=== PATIENT | male | born 1970 | race African-American/Black ===

== ENCOUNTER 2017-01-18 20:16 | Inpatient (IN) ==
[2017-01-18] MEDS ORDERED: ONDANSETRON 4 MG/2 ML VIAL IV STA (21:33)
[2017-01-18] MEDS ORDERED: hydrALAZINE 20 MG/1 ML VIAL IV STA (21:33)
[2017-01-18] MEDS ORDERED: MORPHINE 2 MG/1 ML SYRINGE IV STA (21:33)
[2017-01-18] MEDS ORDERED: ASPIRIN 325 MG TABLET PO STA (21:33)
[2017-01-18] MEDS ORDERED: FUROSEMIDE 100 MG/10 ML VIAL IV STA (21:33)
[2017-01-18] MEDS ORDERED: NITROGLYCERIN 2% OINT 1 INCH/GM PACK TOP STA (21:33)
[2017-01-18] MEDS ORDERED: NITROGLYCERIN 2% OINT 1 INCH/GM PACK TOP ONE (21:41)
[2017-01-18] MEDS ORDERED: ONDANSETRON 4 MG/2 ML VIAL ONE (21:41)
[2017-01-18] MEDS ORDERED: hydrALAZINE 20 MG/1 ML VIAL ONE (21:41)
[2017-01-18] MEDS ORDERED: ASPIRIN 325 MG TABLET ONE (21:42)
[2017-01-18] MEDS ORDERED: MORPHINE 2 MG/1 ML SYRINGE ONE (21:42)
[2017-01-18] MEDS ORDERED: FUROSEMIDE 100 MG/10 ML VIAL ONE (21:42)
--- NOTE | 2017-01-18 21:49 | Emergency Department Note ---
Angie Hernandez Rolonda, am scribing for, and in the presence of, Richard Antunez MD 21:38. Tulio Hernandez Charles R, MD, personally performed the services described in this documentation, ascribed by Lindsay Adams in my presence, and it is both accurate and complete . Arrival - Arrival Chief Complaint: Extremity Problem Stated Complaint: problems with legs/sob/swelling ED Nursing Triage Note: AMB TO ER WITH COMPLAINT OF SWELLING TO BLE. PATIENT STATES THAT SYMPTOMS HAVE BEEN GOING ON FOR SOME TIME NOW- "WEEKS" BUT ARE GETTING WORSE. BP ELEVATED IN TRIAGE. HX OF HTN- PATIENT STATES TAKES BP MEDS AND HAD MORNING DOSE BUT NOT PM DOSE. Mode of Arrival: Ambulatory Limitations: No Limitations Source: Patient, Significant other, Old Records Reviewed, RN Notes Reviewed Time Seen by Provider: 01/18/17 21:01 - History of Present Illness HPI Narrative: Pt is a 46 y/o male who presents to the ED with c/o SOB with an onset of weeks. Pt has a PMHx of HTN and DM. He states that he recently had a stress test done and the results were normal. Pt states that he had lab work done about x1 month ago on his legs and feet and that the results were normal as well. Pt confirms that he has weakness, wheezing, and swelling in his legs and feet. states that she does not recall when pt's great left toe became infected but it worsened over time. She states that pt's toe "looks better than it did before". Pt confirms that he is currently taking BP medication and that he took the morning dosage but has not taken the one for nights. At time of triage, pt's BP was 251/133. No other complaint/pain in ED. Onset (ago): week(s) Consistency: constant Severity: moderate, severe Severity scale (1-10): 6 Allergies/Adverse Reactions: Allergies Allergy/AdvReac Type Severity Reaction Status Date / Time No Known Allergies Allergy Unverified 01/18/17 20:28 Home Medications: Home Medications Medication Instructions Recorded Confirmed Type Carvedilol [Coreg] 12.5 mg PO BID 01/18/17 01/18/17 History Ergocalciferol (Vitamin D2) 50,000 unit PO DIRECTED 01/18/17 01/18/17 History [Vitamin D2] Valsartan/Hydrochlorothiazide 1 each PO DAILY 01/18/17 01/18/17 History [Valsartan-Hctz 320-25 mg Tab] cloNIDine TAB [Catapres Tab] 0.2 mg PO BID 01/18/17 01/18/17 History glipiZIDE [Glipizide] 10 mg PO BID 01/18/17 01/18/17 History metFORMIN [Glucophage] 850 mg PO BID W/MEALS 01/18/17 01/18/17 History Review of System - Review of System 12 point system: reviewed and no additional remarkable complaints except as stated - Review of System Constitutional: Present: weakness. Absent: chills, fever Eyes: Absent: discharge Head/Ears/Nose/Throat: Absent: earache Respiratory: Present: respiratory distress (SOB), wheezing. Absent: cough Cardiovascular: Absent: chest pain Gastrointestinal: Absent: abdominal pain, nausea Genitourinary male: Absent: dysuria Musculoskeletal: Present: joint swelling, other (feet pain). Absent: arm pain, back pain Skin: Absent: rash Neurological: Absent: headache Psychiatric: Absent: anxiety Endocrine: Absent: cold intolerance Hematological/Lymphatic: Absent: easy bleeding Allergic/Immunologic: Absent: facial swelling Medical,Surgical,& Family Hx - Medical History Cardio: History of: Hypertension Endocrine: History of: Diabetes Mellitus (NIDDM) - Social History Smoking Status: Never smoker Frequency of Alcohol Use: None Type of Drug Use: None Exam Vital Signs: Vital Signs Temperature 97.9 F 01/18/17 20:21 Pulse Rate 101 H 01/18/17 20:21 Respiratory Rate 22 01/18/17 21:13 Blood Pressure 251/133 01/18/17 20:21 O2 Sat by Pulse Oximetry 97 01/18/17 20:21 - General General appearance: alert, in no apparent distress - Head Head exam: Present: atraumatic, normocephalic - Eye Eye exam: Present: PERRL, EOMI - ENT ENT exam: Present: mucous membranes moist. Absent: mucous membranes dry - Neck Neck exam: Present: full ROM. Absent: tenderness - Chest Chest inspection: Present: symmetric chest wall rise. Absent: tenderness - Respiratory Respiratory exam: Present: rales (bilaterally). Absent: normal lung sounds bilaterally (slightly labor breathing) - Cardiovascular Cardiovascular exam: Present: normal rhythm, tachycardia - Abdominal Exam Abdominal exam: Present: soft, normal bowel sounds. Absent: tenderness - Extremities Exam Extremities exam: Present: pedal edema (+2). Absent: normal inspection (left great toe ganglious, infected, and cool to touch), tenderness - Back Exam Back exam: Present: full ROM. Absent: tenderness - Neurological Exam Neurological exam: Present: alert, oriented X3, CN II-XII intact - Psychiatric Psychiatric exam: Present: normal affect, normal mood - Skin Skin exam: Present: warm, dry, intact, normal color. Absent: rash Course - Consultations Consultation #1: Hospitalist will admit Time: 22:48 Results - Labs CBC & BMP: 01/18/17 21:36 01/18/17 21:36 Lab Results: I have reviewed the patients labs Labs: Laboratory Tests 01/18/17 01/18/17 21:36 21:36 WBC 9.2 RBC 4.59 Hgb 14.1 Hct 38.9 L MCV 84.7 L MCHC 36.2 H Plt Count 196 MPV 12.9 H INR 1.0 PT Patient/Control Mix 10.8 D-Dimer, Quantitative 1.6 Laboratory Tests 01/18/17 21:36 Sodium 141 Potassium 4.0 Chloride 110 H Carbon Dioxide 24 BUN 19 H Creatinine 1.90 H GFR Calculation 68 Glucose 229 H AST 34 Total Creatine Kinase 672 H CK-MB (CK-2) 4.4 H Albumin 2.0 L Globulin 5.1 H Albumin/Globulin Ratio 0.3 L Critical Care Time Critical Care Time: Yes Total Critical Care Time: 60 Disposition Clinical Impression: Cellulitis, Ulcer of left great toe due to diabetes mellitus, Lower extremity edema, Hypertensive crisis, unspecified Case discussed with: patient, patient's family Disposition: Still a Patient Condition: Guarded Time of Disposition: 22:49
[2017-01-18 21:51] LABS: Basophils % 0.4 % (0.0-0.8); Eosinophils # 0.2 10*3/uL (0.0-0.87); Eosinophils % 1.6 % (0.00-10.9); Hematocrit 38.9 VOL% (42.0-52.0); Hemoglobin 14.1 GM/DL (14.0-18.0); Immature Granulocytes % 0.4 %; Immature Granulocytes Absolute 0.04 #; Lymphocytes % 21.8 % (21.2-54.2); Mean Corpuscular HGB Conc 36.2 GM/DL (32-36); Mean Corpuscular Hemoglobin 31 PG (27-34); Mean Corpuscular Volume 84.7 FL (87-102); Mean Platelet Volume 12.9 FL (9.6-12.0); Monocytes # 0.8 10*3/uL (0.11-0.8); Monocytes % 9.2 % (1.7-12.7); Neutrophils # 6.1 10*3/uL (1.4-7.4); Neutrophils % 66.6 % (38.7-73.9); Platelet Count 196 T/CUMM (130-400); Red Blood Count 4.59 MC/CUMM (3.8-5.5); White Blood Count 9.2 T/CUMM (4-12)
[2017-01-18 21:58] LABS: D-Dimer 1.6 MG/L FEU; PT Patient Result 10.8 SECS
[2017-01-18 22:03] LABS: Alanine Aminotransferase 29 U/L (16-61); Alkaline Phosphatase 107 U/L (45-117); Aspartate Amino Transferase 34 U/L (0-37); Blood Urea Nitrogen 19 MG/DL (7-18); Calcium 8.5 MG/DL (8.5-10.1); Glucose 229 MG/DL (74-106); Osmolality,Calculated 289.3 MOS/KG (273-304); Sodium 141 MMOL/L (136-145); Total Protein 7.1 G/DL (6.4-8.3)
[2017-01-18] MEDS ORDERED: niCARdipine 25 MG/10 ML VIAL IV ONE (22:43)
[2017-01-18] MEDS ORDERED: CEFTAROLINE 600 MG in SODIUM CHLORIDE 0.9% 100 ML IV STA (22:45)
[2017-01-18] MEDS ORDERED: niCARdipine INJ 25 MG in SODIUM CHLORIDE 0.9% 240 ML IV SCH (23:00)
[2017-01-18] MEDS ORDERED: SODIUM CHLORIDE 0.9% 100 ML IV ONE (23:07)
[2017-01-18] MEDS ORDERED: CEFTAROLINE 600 MG VIAL IV ONE (23:07)
[2017-01-18 23:26] LABS: Apearance,Urine CLEAR (Clear); Bilirubin,Urine Negative (Negative); Blood, Urine Small mg/dL (Negative); Glucose,Urine (UA) 150 mg/dL (Negative); Ketones,Urine Negative (Negative); Mucus,Urine Occasional /LPF (Occasional); Nitrite,Urine Negative (Negative); Protein,Urine >=500 MG/DL; RBC,Urine 7 /HPF (0-4); Urine Color Straw (Yellow); Urine Specific Gravity 1.008 (1.001-1.035); Urine Urobilinogen < 2.0 EU/DL (0.2-1.0); WBC,Urine 1 /HPF (0-6)
[2017-01-18 23:35] LABS: Barbiturates Screen,Urine Negative (Negative); Benzodiazepines Screen,Urine Negative (Negative); Cannabinoid Screen,Urine Negative (Negative); Opiate Screen,Urine Negative (Negative); Phencyclidine Screen,Urine Negative (Negative)
[2017-01-18] MEDS ORDERED: DEXTROSE 50% 25 GM/50 ML SYRINGE IV PRN (23:39)
[2017-01-18] MEDS ORDERED: ONDANSETRON 4 MG/2 ML VIAL IV PRN (23:39)
[2017-01-18] MEDS ORDERED: GLUCAGON 1 MG VIAL IM PRN ×2 (23:39→23:46)
[2017-01-18] MEDS ORDERED: MORPHINE 2 MG/1 ML SYRINGE IV PRN (23:39)
[2017-01-18] MEDS ORDERED: ALBUTEROL 2.5 MG/3 ML NEB RESP TX PRN (23:39)
[2017-01-18] MEDS ORDERED: DEXTROSE 50% 25 GM/50 ML VIAL IV PRN (23:46)
--- NOTE | 2017-01-18 23:51 | Hospitalist History & Physical ---
Assessment and Plan (1) Cellulitis Status: Acute Current Visit: Yes (2) Ulcer of left great toe due to diabetes mellitus Status: Acute Current Visit: Yes (3) Lower extremity edema Status: Acute Current Visit: Yes (4) Hypertensive crisis, unspecified Status: Acute Assessment and plan: Our plan for this patient 1. Admit patient to ICU 2. A Cardene infusion 3. IV antibiotics for toe wound 4. Wound care evaluation 5. Consider a surgical evaluation 6. Restart home meds 7. We will try to diurese some of his lower extremity edema off 8. Obtain records from [facility] cardiology Current Visit: Yes History of Present Illness Chief complaint: Lower extremity edema. History of present illness: Mr. Shane is a 46 year old male with past medical history significant for diabetes and hypertension has been dealing with lower extremity edema for several months. He had a recent cardiac workup which I do not have the records to but according to him it was negative. The leg seem to be dependent edema per the story. 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 But he does admit that they will go down when he lays down. Patient is also having a chronic toe wound is been going on approximately 3 weeks. Patient was having elevated blood pressure and I was consulted to admit him for his hypertensive emergency. It was not responding to the as needed hydralazine use to the emergency room and required a Cardene infusion and ICU admission. Home Medications Medication Instructions Recorded Confirmed Type Carvedilol [Coreg] 12.5 mg PO BID 01/18/17 01/18/17 History Ergocalciferol (Vitamin D2) 50,000 unit PO DIRECTED 01/18/17 01/18/17 History [Vitamin D2] Valsartan/Hydrochlorothiazide 1 each PO DAILY 01/18/17 01/18/17 History [Valsartan-Hctz 320-25 mg Tab] cloNIDine TAB [Catapres Tab] 0.2 mg PO BID 01/18/17 01/18/17 History glipiZIDE [Glipizide] 10 mg PO BID 01/18/17 01/18/17 History metFORMIN [Glucophage] 850 mg PO BID W/MEALS 01/18/17 01/18/17 History Allergies Allergy/AdvReac Type Severity Reaction Status Date / Time No Known Allergies Allergy Unverified 01/18/17 20:28 Medical,Surgical,& Family Hx - Medical History Cardio: History of: Hypertension Endocrine: History of: Diabetes Mellitus (NIDDM) - Surgical History Additional Surgical History: Abscess I&D - Family History Family History: Reports;: Family Diabetes, Family Heart Disease - Social History Smoking Status: Never smoker Frequency of Alcohol Use: None Type of Drug Use: None 12 point system: reviewed and no additional remarkable complaints except as stated Exam - Constitutional Vitals: Period Temp Pulse Resp BP Sys/Grimes Pulse Ox Last 24 Hr 97.9 F-97.9 F 101-101 20-22 251-251/133-133 97 General appearance: normal weight - Head Head exam: Present: normal inspection - Eye Eye exam: Present: EOMI Pupils: Present: SANJUANA - ENT ENT exam: Present: normal exam - Neck Neck exam: Present: normal inspection - Respiratory Respiratory exam: Present: clear to auscultation bilaterally - Cardiovascular Cardiovascular exam: Present: regular rate and rhythm - GI/Abdominal GI/Abdominal exam: Present: normal bowel sounds - Extremities Exam Extremities exam: Present: edema (+2), other (Patient's left great toe is cool to touch is discoloration consistent with infection) - Back Exam Back exam: Present: normal inspection - Neurological Exam Neurological exam: Present: alert, oriented X3 - Psychiatric Psychiatric exam: Present: normal affect, normal mood - Skin Skin exam: Present: warm, dry, intact Results - Labs CBC & BMP: 01/18/17 21:36 01/18/17 21:36
[2017-01-19] MEDS: niCARdipine INJ 50 MG in SODIUM CHLORIDE 0.9% 480 ML IV SCH ×3 (00:30→20:15)
--- NOTE | 2017-01-19 06:04 | EKG Report ---
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
[2017-01-19] MEDS: ENOXAPARIN 30 MG/0.3 ML SYRINGE SUBCUT SCH (06:07)
--- NOTE | 2017-01-19 06:59 | XRay Report ---
XR chest 1V portable Indication: Shortness of breath. Chest one view: Comparison 10/17/2007. Lung volumes remain low with chronic elevation right hemidiaphragm. Progressive atelectasis or scarring of the right lung base noted. There are some degree of central pulmonary vascular crowding. No discrete infiltrate. Pulmonary markings are eccentric by obesity. Heart size remains normal. Mediastinal contours unremarkable. Impression: Chronic elevation right hemidiaphragm and continued pulmonary hypoinflation with progressive atelectasis and/or scarring as described. PROCEDURE INTERPRETED AT [facility] Final Report Signed by: Ford Sarkar M.D.
[2017-01-19 07:16] LABS: Basophils % 0.4 % (0.0-0.8); Eosinophils # 0.1 10*3/uL (0.0-0.87); Eosinophils % 1.2 % (0.00-10.9); Hematocrit 36.4 VOL% (42.0-52.0); Hemoglobin 12.9 GM/DL (14.0-18.0); Immature Granulocytes % 0.4 %; Immature Granulocytes Absolute 0.04 #; Lymphocytes # 1.9 10*3/uL (1.4-4.0); Mean Corpuscular HGB Conc 35.4 GM/DL (32-36); Mean Corpuscular Hemoglobin 31 PG (27-34); Mean Corpuscular Volume 86.3 FL (87-102); Monocytes # 0.8 10*3/uL (0.11-0.8); Monocytes % 8.5 % (1.7-12.7); Neutrophils % 70.5 % (38.7-73.9); Platelet Count 198 T/CUMM (130-400); Red Blood Count 4.22 MC/CUMM (3.8-5.5); Red Cell Distribution Width 13.1 % (9.3-17.3); White Blood Count 9.9 T/CUMM (4-12)
[2017-01-19] MEDS ORDERED: hydrALAZINE 20 MG/1 ML VIAL IV PRN (07:26)
[2017-01-19] MEDS: INSULIN REGULAR 100 UNIT/ML SUBCUT SCH ×4 (07:55→20:32)
[2017-01-19] MEDS: FUROSEMIDE 40 MG/4 ML VIAL IV SCH ×2 (07:55→16:30)
[2017-01-19 07:58] LABS: Albumin 2.1 G/DL (3.4-5.0); Bilirubin,Total 0.7 MG/DL (0.2-1.0); Calcium 8.4 MG/DL (8.5-10.1); Osmolality,Calculated 294.3 MOS/KG (273-304); Potassium 3.8 MMOL/L (3.5-5.1); Total Protein 5.8 G/DL (6.4-8.3)
[2017-01-19] MEDS: hydroCHLOROthiazide 25 MG TABLET PO SCH (08:05)
[2017-01-19] MEDS: VALSARTAN 160 MG TABLET PO SCH (08:05)
[2017-01-19] MEDS: PANTOPRAZOLE 40 MG TABLET PO SCH (08:05)
[2017-01-19] MEDS ORDERED: CARVEDILOL 12.5 MG TABLET PO SCH (09:00)
[2017-01-19] MEDS: CEFTAROLINE 600 MG in SODIUM CHLORIDE 0.9% 100 ML IV SCH (11:56)
--- NOTE | 2017-01-19 16:02 | Hospitalist Progress Note ---
Assessment and Plan (1) Hypertensive crisis, unspecified Status: Acute Assessment and plan: Continue home medications. Add as needed IV hydralazine. Continue Cardene drip and wean as tolerated. Current Visit: Yes (2) Cellulitis Status: Acute Assessment and plan: Continue Teflaro. Surgery consult for debridement. Current Visit: Yes Qualifiers: Site of cellulitis: extremity Laterality: left (3) Ulcer of left great toe due to diabetes mellitus Status: Acute Current Visit: Yes (4) Lower extremity edema Status: Acute Current Visit: Yes Hospitalist: Subjective Interval history: Patient seen and examined. No acute events overnight. Case discussed with nursing staff. Labs reviewed. Wound care consult pending as well as general surgery consult for evaluation and debridement of left great toe. The patient remains on Cardene drip for uncontrolled hypertension. Exam - Constitutional Vitals: Period Temp Pulse Resp BP Sys/Grimes Pulse Ox Last 24 Hr 97.2 F-99.2 F 84-105 7-38 118-251/55-133 92-100 Exam: Constitutional System: No distress. morbidly obese . No tremulousness. Head: Normocephalic, atraumatic. Ears, Nose and Throat System: No pain or tenderness. No epistaxis or discharge Eyes System: Pupils equal, round, and reactive. Extraocular muscles intact. Neck: Supple, without adenopathy, No jugular venous distention. No thyromegaly, neck mass, or prior surgery apparent. Respiratory System: Chest clear to auscultation. Cardiovascular System: Heart with regular rate and rhythm. No murmur. GI System: Abdomen soft, nontender. Normo active bowel sounds present. Musculoskeletal System: limbs with bilateral pedal edema. Full distal pulses. Poor sensation in feet. Left great toe with foul-smelling discharge and nonviable appearing male with areas of necrosis. Neurological System: Alert awake and oriented 3. No acute distress. Pleasant and cooperative. Psychiatric System: Conversation is rational Results - Labs CBC & BMP: 01/19/17 07:11 01/19/17 07:11 Lab Results: I have reviewed the past 24 hour labs
--- NOTE | 2017-01-19 17:05 | General Surgery Consult Note ---
Assessment and Plan - Time spent with patient Time spent with patient: Less than 30 minutes (1) Ulcer of left great toe due to diabetes mellitus Status: Acute Assessment and plan: I think this is mainly due to a severely ingrown toenail with secondary infection. The toenail does not appear viable and probably need to be removed. He will need debridement adjacent to this. We will set this up to be done in the morning. Procedure and risk of been explained and he wishes to proceed. Current Visit: Yes History of Present Illness Chief complaint: Infected toe History of present illness: Mr. Shane is a 46 year old male Who was admitted to the CCU for bilateral lower extremity edema and severe hypertension.. He states that he has about a 3 week history of drainage and foul odor from his left great toe. He has noted increasing deformity of his toenail. He does not know of any aggravating or alleviating factors. He is unaware of trauma to his toe. He has very poor sensation in his feet. Home Medications Medication Instructions Recorded Confirmed Type Carvedilol [Coreg] 12.5 mg PO BID 01/18/17 01/18/17 History Ergocalciferol (Vitamin D2) 50,000 unit PO DIRECTED 01/18/17 01/18/17 History [Vitamin D2] Valsartan/Hydrochlorothiazide 1 each PO DAILY 01/18/17 01/18/17 History [Valsartan-Hctz 320-25 mg Tab] cloNIDine TAB [Catapres Tab] 0.2 mg PO BID 01/18/17 01/18/17 History glipiZIDE [Glipizide] 10 mg PO BID 01/18/17 01/18/17 History metFORMIN [Glucophage] 850 mg PO BID W/MEALS 01/18/17 01/18/17 History Cholecalciferol (Vitamin D3) 2,000 unit PO DAILY 01/19/17 01/19/17 History [Vitamin D3] Ergocalciferol (Vitamin D2) 50,000 unit PO DAILY 01/19/17 01/19/17 History [Vitamin D2] Allergies Allergy/AdvReac Type Severity Reaction Status Date / Time No Known Allergies Allergy Unverified 01/18/17 20:28 Medical,Surgical,& Family Hx - Medical History Cardio: History of: Hypertension HEENT: History of: 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 glasses) Endocrine: History of: Diabetes Mellitus (NIDDM) Respiratory: History of: Pneumonia (year and a half ago) - Surgical History Surgical History: noncontributory - Family History Family History: Reports;: Family Diabetes, Family Heart Disease - Social History Smoking Status: Never smoker Frequency of Alcohol Use: None Type of Drug Use: None - Constitutional Constitutional: Absent: chills, fever(s) - Cardiovascular Cardiovascular: Absent: chest pain at rest, dyspnea - Respiratory Respiratory: Absent: dyspnea - Gastrointestinal Gastrointestinal: Absent: abdominal pain - Neurological Neurological: Absent: syncope Hematologic/Lymphatic: Absent: easy bleeding, easy bruising Exam - Constitutional Vitals: Period Temp Pulse Resp BP Sys/Grimes Pulse Ox Last 24 Hr 97.2 F-99.2 F 84-105 7-38 114-251/55-133 92-100 General appearance: no acute distress, morbidly obese - Eye Eye exam: Absent: scleral icterus - ENT Mouth exam: Present: normal voice - Respiratory Respiratory exam: Absent: accessory muscle use - GI/Abdominal GI/Abdominal exam: Absent: distended, tenderness - Extremities Exam Extremities exam: Present: edema, other (Left great toe has severe deformity of the nail with some purulent drainage from beneath the nail. It appears to be severely ingrown laterally. He does not have significant edema or cellulitis of the toe itself other than at the nail bed.) - Neurological Exam Neurological exam: Present: alert, oriented X3 Speech: Present: normal Results - Labs CBC & BMP: 01/19/17 07:11 01/19/17 07:11 Lab Results: I have reviewed the past 24 hour labs
[2017-01-19] MEDS: CARVEDILOL 25 MG TABLET PO SCH (20:32)
[2017-01-20] MEDS: CEFTAROLINE 600 MG in SODIUM CHLORIDE 0.9% 100 ML IV SCH ×3 (00:02→23:44)
[2017-01-20] MEDS: ENOXAPARIN 30 MG/0.3 ML SYRINGE SUBCUT SCH (06:18)
[2017-01-20 07:26] LABS: Calcium 8.1 MG/DL (8.5-10.1); Osmolality,Calculated 289.3 MOS/KG (273-304); Potassium 3.8 MMOL/L (3.5-5.1)
[2017-01-20] MEDS: FUROSEMIDE 40 MG/4 ML VIAL IV SCH ×2 (08:26→16:46)
[2017-01-20] MEDS: CARVEDILOL 25 MG TABLET PO SCH ×2 (08:28→20:57)
[2017-01-20] MEDS: hydroCHLOROthiazide 25 MG TABLET PO SCH (08:28)
[2017-01-20] MEDS: VALSARTAN 160 MG TABLET PO SCH (08:28)
[2017-01-20] MEDS: PANTOPRAZOLE 40 MG TABLET PO SCH (08:28)
[2017-01-20] MEDS: INSULIN REGULAR 100 UNIT/ML SUBCUT SCH ×4 (09:00→20:56)
[2017-01-20] MEDS ORDERED: BUPIVACAINE 0.25% 50 ML VIAL ONE (10:02)
[2017-01-20] MEDS: niCARdipine INJ 50 MG in SODIUM CHLORIDE 0.9% 480 ML IV SCH (10:14)
[2017-01-20] MEDS: LACTATED RINGERS 1,000 ML IV SCH (10:45)
--- NOTE | 2017-01-20 11:18 | Anesthesia Post-Op ---
Anesthesia Post OP - Post Ansesthetic Evaluation Patient seen in post op: Yes Resp: within normal limits CV: within normal limits Mental: within normal limits Temp: within normal limits [id number]: within normal limits Nausea and Vomiting: within normal limits Pain: within normal limits
--- NOTE | 2017-01-20 11:23 | Operative Note ---
Date of procedure: 01/20/17 Pre-op diagnosis: ingrown toe nail and necrosis lateral great toe Post-op diagnosis: same Procedure: 1. excisional debridement skin and subcutaneous tissue left great toe 2. removal toe nail Findings and technique: After informed consent was obtained, the patient was brought to the operating room and placed in the supine position. The left foot was prepped and draped in the usual sterile fashion. Local anesthesia without epinephrine was injected proximal to the nailbed and the toe was inspected and he had a severely ingrown nail laterally and the proximal toenail was completely dissociated from the nailbed. The toenail was easily removed without difficulty. There was some necrotic skin edge and subcutaneous tissue lateral to the cuticle and this was sharply debrided with a #15 blade removing old granulation tissue and debris. I wanted to make sure there was no foreign body in this area. This granulation tissue and necrotic subcutaneous tissue and skin edge lateral to the nail was debrided away. Good hemostasis was obtained. This was irrigated and sterilely dressed. Anesthesia: MAC, local Surgeon / Physician: Jose Iglesias III. Estimated blood loss: minimal Condition: stable Disposition: PACU Results - Labs CBC & BMP: 01/19/17 07:11 01/20/17 05:55 Discharge Plan - Discharge Medications No Action metFORMIN [Glucophage] 850 mg PO BID W/MEALS cloNIDine TAB [Catapres Tab] 0.2 mg PO BID glipiZIDE [Glipizide] 10 mg PO BID Valsartan/Hydrochlorothiazide [Valsartan-Hctz 320-25 mg Tab] 1 each PO DAILY Ergocalciferol (Vitamin D2) [Vitamin D2] 50,000 unit PO DIRECTED Carvedilol [Coreg] 12.5 mg PO BID Cholecalciferol (Vitamin D3) [Vitamin D3] 2,000 unit PO DAILY Ergocalciferol (Vitamin D2) [Vitamin D2] 50,000 unit PO DAILY - Follow Up or Referral - Forms/Instructions
[2017-01-20] MEDS ORDERED: PROPOFOL 200 MG/20 ML VIAL IV ONE (11:27)
[2017-01-20] MEDS ORDERED: MIDAZOLAM 2 MG/2 ML VIAL ONE (11:28)
[2017-01-20] MEDS ORDERED: fentaNYL 100 MCG/2 ML VIAL ONE (11:28)
[2017-01-20] MEDS ORDERED: hydrALAZINE 25 MG TABLET PO SCH (15:00)
--- NOTE | 2017-01-20 19:13 | Hospitalist Progress Note ---
Hospitalist: Subjective Interval history: 46-year-old -[place] male with history of hypertension and diabetes, in and has agreed with hypertensive urgency on IV Cardene infusion. He also has left diabetic foot with left great toe ulcer. He is otherwise comfortable. Exam - Constitutional Vitals: Period Temp Pulse Resp BP Sys/Grimes Pulse Ox Last 24 Hr 97.4 F-99 F 73-99 12-28 110-191/62-108 5-100 Exam: Constitutional System: No distress. morbidly obese . No tremulousness. Head: Normocephalic, atraumatic. Ears, Nose and Throat System: No pain or tenderness. No epistaxis or discharge Eyes System: Pupils equal, round, and reactive. Extraocular muscles intact. Neck: Supple, without adenopathy, No jugular venous distention. No thyromegaly, neck mass, or prior surgery apparent. Respiratory System: Chest clear to auscultation. Cardiovascular System: Heart with regular rate and rhythm. No murmur. GI System: Abdomen soft, nontender. Normo active bowel sounds present. Musculoskeletal System: limbs with bilateral pedal edema. Full distal pulses. Poor sensation in feet. Left great toe with foul-smelling discharge and nonviable appearing male with areas of necrosis. Neurological System: Alert awake and oriented 3. No acute distress. Pleasant and cooperative. Results - Labs CBC & BMP: 01/19/17 07:11 01/20/17 05:55 - Impressions Assessment and Plan (1) Hypertensive urgency Status: Acute Assessment and plan: Continue home medications. Continue Cardene drip and wean as tolerated, and keep on adjusting oral medications blood pressure is poorly controlled Current Visit: Yes (2) Foot cellulitis Status: Acute Assessment and plan: Continue Teflaro. Surgery consult for debridement. Current Visit: Yes Qualifiers: Site of cellulitis: extremity Laterality: left (3) Left diabetic foot with left great toe ulcer Status: Acute Current Visit: Yes Patient is scheduled to go to OR today for surgical debridement. (4) Lower extremity edema Status: Acute Current Visit: Yes
[2017-01-21] MEDS: niCARdipine INJ 50 MG in SODIUM CHLORIDE 0.9% 480 ML IV SCH (04:36)
[2017-01-21] MEDS: ENOXAPARIN 30 MG/0.3 ML SYRINGE SUBCUT SCH (06:21)
[2017-01-21] MEDS: FUROSEMIDE 40 MG/4 ML VIAL IV SCH (08:37)
[2017-01-21] MEDS: hydroCHLOROthiazide 25 MG TABLET PO SCH (08:40)
[2017-01-21] MEDS: CARVEDILOL 25 MG TABLET PO SCH ×2 (08:40→20:58)
[2017-01-21] MEDS: VALSARTAN 160 MG TABLET PO SCH (08:40)
[2017-01-21] MEDS: PANTOPRAZOLE 40 MG TABLET PO SCH (08:40)
[2017-01-21] MEDS: INSULIN REGULAR 100 UNIT/ML SUBCUT SCH ×4 (08:45→20:59)
[2017-01-21] MEDS: LACTATED RINGERS 1,000 ML IV SCH (12:11)
[2017-01-21] MEDS: CEFTAROLINE 600 MG in SODIUM CHLORIDE 0.9% 100 ML IV SCH (14:30)
--- NOTE | 2017-01-21 16:14 | Hospitalist Progress Note ---
Hospitalist: Subjective Interval history: 46-year-old -[place] male with history of hypertension and diabetes, in and has agreed with hypertensive urgency on IV Cardene infusion. He also has left diabetic foot with left great toe ulcer. He is otherwise comfortable. Exam - Constitutional Vitals: Period Temp Pulse Resp BP Sys/Grimes Pulse Ox Last 24 Hr 97.7 F-98.8 F 73-96 12-31 131-182/83-106 95-99 Exam: Constitutional System: No distress. morbidly obese . No tremulousness. Head: Normocephalic, atraumatic. Ears, Nose and Throat System: No pain or tenderness. No epistaxis or discharge Eyes System: Pupils equal, round, and reactive. Extraocular muscles intact. Neck: Supple, without adenopathy, No jugular venous distention. No thyromegaly, neck mass, or prior surgery apparent. Respiratory System: Chest clear to auscultation. Cardiovascular System: Heart with regular rate and rhythm. No murmur. GI System: Abdomen soft, nontender. Normo active bowel sounds present. Musculoskeletal System: limbs with bilateral pedal edema. Full distal pulses. Poor sensation in feet. Left great toe with foul-smelling discharge and nonviable appearing male with areas of necrosis. Neurological System: Alert awake and oriented 3. No acute distress. Pleasant and cooperative. Results - Labs CBC & BMP: 01/19/17 07:11 01/20/17 05:55 - Impressions Assessment and Plan (1) Hypertensive urgency Status: Acute Assessment and plan: Continue home medications. Continue Cardene drip and wean as tolerated, and keep on adjusting oral medications blood pressure is poorly controlled Current Visit: Yes (2) Foot cellulitis Status: Acute Assessment and plan: Continue Teflaro. Surgery consult for debridement. Current Visit: Yes Qualifiers: Site of cellulitis: extremity Laterality: left (3) Left diabetic foot with left great toe ulcer Status: Acute Current Visit: Yes Had surgical debridement 01/20 (4) Lower extremity edema Status: Acute Current Visit: Yes
[2017-01-21] MEDS: ISOSORBIDE DINITRATE 10 MG TABLET PO SCH (20:58)
[2017-01-22] MEDS: ACETAMINOPHEN 325 MG TABLET PO PRN ×2 (01:29→12:24)
[2017-01-22] MEDS: ZALEPLON 5 MG CAPSULE PO PRN (01:29)
[2017-01-22] MEDS: CEFTAROLINE 600 MG in SODIUM CHLORIDE 0.9% 100 ML IV SCH ×2 (01:30→11:41)
[2017-01-22 02:04] LABS: Calcium 7.7 MG/DL (8.5-10.1); Osmolality,Calculated 285.5 MOS/KG (273-304); Potassium 3.4 MMOL/L (3.5-5.1)
[2017-01-22] MEDS: niCARdipine INJ 50 MG in SODIUM CHLORIDE 0.9% 480 ML IV SCH (05:19)
[2017-01-22] MEDS: VALSARTAN 160 MG TABLET PO SCH (08:16)
[2017-01-22] MEDS: hydroCHLOROthiazide 25 MG TABLET PO SCH (08:16)
[2017-01-22] MEDS: CARVEDILOL 25 MG TABLET PO SCH ×2 (08:17→21:19)
[2017-01-22] MEDS: ENOXAPARIN 30 MG/0.3 ML SYRINGE SUBCUT SCH (08:17)
[2017-01-22] MEDS: FUROSEMIDE 20 MG TABLET PO SCH (08:17)
[2017-01-22] MEDS: INSULIN REGULAR 100 UNIT/ML SUBCUT SCH ×4 (08:18→21:27)
[2017-01-22] MEDS: ISOSORBIDE DINITRATE 10 MG TABLET PO SCH ×2 (08:22→21:19)
[2017-01-22] MEDS: PANTOPRAZOLE 40 MG TABLET PO SCH (08:33)
--- NOTE | 2017-01-22 10:14 | General Surgery Progress Note ---
Assessment and Plan (1) Ulcer of left great toe due to diabetes mellitus Status: Acute Assessment and plan: I think this is mainly due to a severely ingrown toenail with secondary infection. The toenail does not appear viable and probably need to be removed. He will need debridement adjacent to this. We will set this up to be done in the morning. Procedure and risk of been explained and he wishes to proceed. 01/22: He feels much better and has no complaints referable to his toe. His toe almost has a normal appearance now with the nail removed and the ulcerated area lateral to the nail bed debrided away. This is closing in and healing nicely with no signs of active infection or cellulitis. I will sign off for now but will be happy to see him back in the future if needed. I think that washing daily with soap and water and a dry dressing should be adequate. This was discussed with him and his family. I will be happy to follow him up in the clinic if needed after he is discharged. Current Visit: Yes Subjective Patient reports: Present: feels better. Absent: still having pain, fever Exam - Constitutional Vitals: Period Temp Pulse Resp BP Sys/Grimes Pulse Ox Last 24 Hr 97.7 F-98.4 F 78-87 12-28 120-182/68-104 95-99 General appearance: no acute distress - Respiratory Respiratory exam: Absent: accessory muscle use - Extremities Exam Extremities exam: Present: other (The great toe has no signs of cellulitis or purulence or active infection. This area appears to be healing well.). Absent : edema Results - Labs CBC & BMP: 01/19/17 07:11 01/22/17 01:29
[2017-01-22] MEDS ORDERED: POTASSIUM CHLORIDE 20 MEQ TABLET PO ONE (15:29)
--- NOTE | 2017-01-22 15:42 | Hospitalist Progress Note ---
Hospitalist: Subjective Interval history: 46-year-old -[place] male with history of hypertension and diabetes, was admitted with hypertensive urgency and was on IV Cardene infusion. His BP improved & he is off Cardene infusion. He also has left diabetic foot with left great toe ulcer. He is otherwise comfortable. Exam - Constitutional Vitals: Period Temp Pulse Resp BP Sys/Grimes Pulse Ox Last 24 Hr 97.8 F-98.7 F 71-87 12-28 120-180/68-99 94-99 Exam: Constitutional System: No distress. morbidly obese . No tremulousness. Head: Normocephalic, atraumatic. Ears, Nose and Throat System: No pain or tenderness. No epistaxis or discharge Eyes System: Pupils equal, round, and reactive. Extraocular muscles intact. Neck: Supple, without adenopathy, No jugular venous distention. No thyromegaly, neck mass, or prior surgery apparent. Respiratory System: Chest clear to auscultation. Cardiovascular System: Heart with regular rate and rhythm. No murmur. GI System: Abdomen soft, nontender. Normo active bowel sounds present. Musculoskeletal System: limbs with bilateral pedal edema. Full distal pulses. Poor sensation in feet. Left great toe with foul-smelling discharge and nonviable appearing male with areas of necrosis. Neurological System: Alert awake and oriented 3. No acute distress. Pleasant and cooperative. Results - Labs CBC & BMP: 01/19/17 07:11 01/22/17 01:29 - Impressions Assessment and Plan (1) Hypertensive urgency Status: Acute Assessment and plan: His BP is better on oral agents, continue to adjust meds based on BP. He is off of Cardene infusion. Current Visit: Yes (2) Foot cellulitis Status: Acute Assessment and plan: Continue Teflaro. Surgery debrided his wound. Current Visit: Yes Qualifiers: Site of cellulitis: extremity Laterality: left (3) Left diabetic foot with left great toe ulcer Status: Acute Current Visit: Yes Had surgical debridement 01/20 (4) Lower extremity edema Status: Acute Current Visit: Yes This is better (5) CKD-III Status: Chronic Current Visit: Yes (6) Hypokalemia Status: Acute Current Visit: Yes K was replaced. Transfer to floor from ICU.
[2017-01-23] MEDS: CEFTAROLINE 600 MG in SODIUM CHLORIDE 0.9% 100 ML IV SCH ×2 (00:20→11:11)
[2017-01-23] MEDS: ZALEPLON 5 MG CAPSULE PO PRN (00:22)
[2017-01-23] MEDS: ACETAMINOPHEN 325 MG TABLET PO PRN (03:10)
[2017-01-23 06:41] LABS: Calcium 8.1 MG/DL (8.5-10.1); Osmolality,Calculated 286.5 MOS/KG (273-304)
[2017-01-23] MEDS: ENOXAPARIN 30 MG/0.3 ML SYRINGE SUBCUT SCH (07:59)
[2017-01-23] MEDS: VALSARTAN 160 MG TABLET PO SCH (07:59)
[2017-01-23] MEDS: INSULIN REGULAR 100 UNIT/ML SUBCUT SCH ×3 (07:59→16:20)
[2017-01-23] MEDS: CARVEDILOL 25 MG TABLET PO SCH (08:00)
[2017-01-23] MEDS: hydroCHLOROthiazide 25 MG TABLET PO SCH (08:00)
[2017-01-23] MEDS: PANTOPRAZOLE 40 MG TABLET PO SCH (08:00)
[2017-01-23] MEDS: FUROSEMIDE 20 MG TABLET PO SCH (09:09)
[2017-01-23] MEDS: ISOSORBIDE DINITRATE 10 MG TABLET PO SCH (09:10)
--- NOTE | 2017-01-23 13:18 | Physician Query Form ---
CLICK EDIT DOCUMENT TO SELECT QUERY ANSWER --> OK --> SIGN Eden Meek RN, CCDS Certified Clinical Stock Shaper W) [phone] (f) [phone] [email or web address] PROVIDERS: Make your selection(s) from the choices in EACH section by typing an "x" and enter comments in the comment section. Please use your independent medical judgment in providing your response. This request does not imply that any particular answer is desired or expected. CLINICAL INDICATORS: (Providers should not edit this section) Height: Height 69#--- Weight: Wt. 296# Veterans Services Specialist BMI: BMI 43.8# Retail Consultant Notes: -"Reinforced Consistent CHO, low Na, Wt Reduction diet- reviewed w/ pt Veterans Services Specialist Recommendations: The medical record indicates that the patient was admitted with hypertensive crisis, "normal weight", "morbidly obese" and BMI 43.8#.---"Reinforced Consistent CHO, low Na, Wt Reduction diet- reviewed w/ pt"--- If applicable, please provide an associated diagnosis related to the abnormal BMI: BMI of 40 or greater: ( ) Overweight ( ) Obesity (x ) Morbid//Severe Obesity ( ) Obesity with Alveolar Hypoventilation ( ) Weight Gain ( ) BMI is not significant ( ) Other, please specify: ( ) Clinically unable to determine COMMENTS: PLEASE ALSO DOCUMENT RESPONSE IN PROGRESS NOTES AND/OR DISCHARGE SUMMARY Use of terms such as suspected, likely, or probable (associated with a specific diagnosis that is being evaluated, monitored, or treated as if it exists) are acceptable and can be restated in the discharge summary if not ruled out. MTDD
--- NOTE | 2017-01-23 14:44 | Discharge Summary ---
Hospital Course - Hospital Course Hospital Course: 46-year-old male with history of diabetes and hypertension admitted by the hospitalist service on 01/18/2017 with lower extremity edema, left great toe ulcer, and hypertensive crisis. He was admitted to the ICU and started on Cardene infusion and antibiotics for his toe wound and cellulitis. He was started on some gentle diuresis for his lower extremity edema. Dr. Kelsie ORTIZ from general surgery was consulted and he took the patient to the OR on 2016 where he did an excisional debridement and removal of the toenail of the left great toe. Patient's toe is clean and dry the cellulitis has resolved. Patient can follow-up with Dr. Iglesias in his office in 1-2 weeks. No antibiotics are needed. Patient's blood pressures are under much better control since his medicines have been adjusted. Patient will be discharged home with a 1-2 week follow-up with his primary care physician. Complete discharge instructions were given. Care coordination, chart review, and completed discharge paperwork took approximately 33 minutes. - Time spent with patient Time with patient DS: Greater than 30 minutes Diagnosis - Discharge Diagnosis (1) Ulcer of left great toe due to diabetes mellitus Status: Resolved (2) Lower extremity edema Status: Resolved (3) Hypertensive crisis, unspecified Status: Resolved Discharge Plan - Discharge Data Disposition: Disch To Home/Self Care Condition at Discharge: Stable Discharge Diet: diabetic diet Activity: resume usual activities as tolerated Hygiene: may shower Weight Bearing at Discharge: weight bear as tolerated Driving: other (No driving if taking pain medications) Wound / Dressing Care Instructions: Okay to shower daily with mild soap and water, pat dry, light dressing as needed - Discharge Medications New Carvedilol [Coreg] 25 mg PO BID #60 tablet Furosemide Tab [Lasix Tab] 20 mg PO DAILY tablet hydrALAZINE TAB [Apresoline Tab] 100 mg PO TID #90 tablet Isosorbide Dinitrate [Isordil] 30 mg PO BID #60 tablet Continue metFORMIN [Glucophage] 850 mg PO BID W/MEALS cloNIDine TAB [Catapres Tab] 0.2 mg PO BID glipiZIDE [Glipizide] 10 mg PO BID Valsartan/Hydrochlorothiazide [Valsartan-Hctz 320-25 mg Tab] 1 each PO DAILY Ergocalciferol (Vitamin D2) [Vitamin D2] 50,000 unit PO DIRECTED Cholecalciferol (Vitamin D3) [Vitamin D3] 2,000 unit PO DAILY Ergocalciferol (Vitamin D2) [Vitamin D2] 50,000 unit PO DAILY Discontinued Carvedilol [Coreg] 12.5 mg PO BID - Follow Up or Referral Follow Up: your, PCP [Other] - 1 Week - Forms/Instructions Exam - Constitutional Vitals: Period Temp Pulse Resp BP Sys/Grimes Pulse Ox Last 24 Hr 97.3 F-98.3 F 70-88 12-26 115-179/71-010 94-100 Discharge Results Labs on day of discharge: Labs from last 24 hours 01/23/17 01/23/17 01/23/17 10:37 07:14 04:56 Sodium 139 Potassium 4.0 Chloride 105 Carbon Dioxide 25 Anion Gap 13.0 BUN 27 H Creatinine 2.40 H GFR Calculation 52 BUN/Creatinine Ratio 11.00 Glucose 188 H POC Glucose 209 H 200 H Calculated Osmolality 286.5 Calcium 8.1 L 01/22/17 01/22/17 21:24 16:12 Sodium Potassium Chloride Carbon Dioxide Anion Gap BUN Creatinine GFR Calculation BUN/Creatinine Ratio Glucose POC Glucose 228 H 190 H Calculated Osmolality Calcium DS: Provider Date of admission: 01/18/17 23:39 Primary care physician: . No PCP Attending physician on admission: Ford Pineda MD Consults: 01/18/17 23:44 Consult to Wound Care [facility] [CONS] Routine Reason for Wound Care: Wound Care Management Consult Comment: left great toe 01/19/17 15:32 Consult to Physician [CONS] Routine Comment: eval of left great toe Consulting Provider: Jose Iglesias III. Discharging clinician: TERENCE Meyer Expected date of discharge: 01/23/17
[2017-01-23 16:06] VITALS: BP 177/100
--- NOTE | 2017-01-23 17:21 | Pathology Report from [facility] ---
[facility] ACCESSION # : [id number] PATIENT NAME : Tami Shane ORDERING DR : ENEIDA JHAVERI III, MD CLINICAL HX: Infected left great toe POST-OP DX: Same SPECIMEN INFO: Left great toenail GROSS DESCRIPTION: The specimen is received in formalin labeled with the patients name and consists of a toenail measuring 1.5 x 2.5 cm. [employer] Curt[employer] Machine Tender sections submitted in one cassette. DIAGNOSIS FOR TAMI SHANE: LEFT GREAT TOENAIL, DEBRIDEMENT: Toenail tissue and necrotic/suppurative debris. COLLECTED DATE: 01/20/2017 [facility] REPORT DATE: 01/23/2017 ELECTRONICALLY SIGNED BY: Flor Meyers M.D. 01/23/2017 - 10:32:25 [facility]
[2017-01-23] MEDS ORDERED: DOXAZOSIN 1 MG TABLET PO SCH (21:00)
== END 2017-01-23 16:36 | disposition home or self-care (01) | DRG 623 ==
LOC: N.ED 20:16 → SUATTDRO 23:39 → N.EDINP 23:39 → N.CC 01-19 00:04
PROVIDERS: ADMIT Internal Medicine; ATTEND Hospitalist

== ENCOUNTER 2017-05-02 21:31 | Inpatient (IN) ==
[2017-05-03] MEDS ORDERED: CEFTAROLINE 600 MG in SODIUM CHLORIDE 0.9% 100 ML IV STA (01:01)
[2017-05-03] MEDS ORDERED: SODIUM CHLORIDE 0.9% 500 ML IV STA (01:01)
[2017-05-03 01:49] LABS: Basophils # 0.1 10*3/uL (0.0-0.2); Basophils % 0.5 % (0.0-0.8); Eosinophils # 0.2 10*3/uL (0.0-0.87); Hematocrit 29.9 VOL% (42.0-52.0); Hemoglobin 10.3 GM/DL (14.0-18.0); Immature Granulocytes % 3.7 %; Immature Granulocytes Absolute 0.54 #; Lymphocytes % 13.8 % (21.2-54.2); Mean Corpuscular HGB Conc 34.4 GM/DL (32-36); Mean Corpuscular Hemoglobin 30 PG (27-34); Mean Corpuscular Volume 86.7 FL (87-102); Mean Platelet Volume 10.4 FL (9.6-12.0); Monocytes # 1.2 10*3/uL (0.11-0.8); Monocytes % 7.9 % (1.7-12.7); Neutrophils # 10.8 10*3/uL (1.4-7.4); Neutrophils % 73.1 % (38.7-73.9); Platelet Count 326 T/CUMM (130-400); Red Blood Count 3.45 MC/CUMM (3.8-5.5); Red Cell Distribution Width 13.7 % (9.3-17.3); White Blood Count 14.7 T/CUMM (4-12)
[2017-05-03] MEDS ORDERED: SODIUM CHLORIDE 0.9% 100 ML IV ONE (01:58)
[2017-05-03] MEDS ORDERED: CEFTAROLINE 600 MG VIAL IV ONE (01:58)
[2017-05-03 02:10] LABS: Alanine Aminotransferase 43 U/L (16-61); Albumin 1.7 G/DL (3.4-5.0); Alkaline Phosphatase 260 U/L (45-117); Aspartate Amino Transferase 31 U/L (0-37); Bilirubin,Total < 0.39 MG/DL (0.2-1.0); Blood Urea Nitrogen 34 MG/DL (7-18); Calcium 8.3 MG/DL (8.5-10.1); Glucose 350 MG/DL (74-106); Lactic Acid 1.1 MMOL/L (0.4-2.0); Osmolality,Calculated 294.8 MOS/KG (273-304); Potassium 3.8 MMOL/L (3.5-5.1); Sodium 137 MMOL/L (136-145); Total Protein 8.1 G/DL (6.4-8.3)
[2017-05-03] MEDS ORDERED: INSULIN REGULAR 100 UNIT/ML SUBCUT STA (02:19)
[2017-05-03 02:46] LABS: Band Neutrophils 5 % (0-10); Eosinophils 1 % (0-10); Lymphocytes 15 % (20-55); Metamyelocytes 2 %; Segmented Neutrophils 74 % (50-85)
[2017-05-03 02:47] LABS: Platelet Estimate Adequate; Total Cells Counted 100
[2017-05-03] MEDS ORDERED: INSULIN REGULAR 100 UNIT/ML ONE (03:14)
[2017-05-03] MEDS ORDERED: hydrALAZINE 20 MG/1 ML VIAL IV STA (03:49)
[2017-05-03] MEDS ORDERED: hydrALAZINE 20 MG/1 ML VIAL ONE (04:20)
[2017-05-03] MEDS ORDERED: ENALAPRIL 2.5 MG/2 ML VIAL IV SCH (06:24)
[2017-05-03] MEDS ORDERED: VANCOMYCIN INJ 1,750 MG in SODIUM CHLORIDE 0.9% 500 ML IV SCH (06:24)
[2017-05-03] MEDS ORDERED: ONDANSETRON 4 MG/2 ML VIAL IV PRN ×2 (06:24→10:10)
[2017-05-03] MEDS ORDERED: DEXTROSE 50% 25 GM/50 ML VIAL IV PRN ×2 (06:24→10:45)
[2017-05-03] MEDS ORDERED: GLUCAGON 1 MG VIAL IM PRN ×2 (06:24→10:45)
[2017-05-03] MEDS: ENOXAPARIN 40 MG/0.4 ML SYRINGE SUBCUT SCH (08:24)
[2017-05-03] MEDS: INSULIN REGULAR 100 UNIT/ML SUBCUT SCH ×5 (08:32→22:13)
[2017-05-03] MEDS: SODIUM CHLORIDE 0.9% 1,000 ML IV SCH (08:33)
[2017-05-03 09:03] LABS: % Iron Saturation 30.2 % (18-50); Ferritin 336.1 ng/ml (26-388)
[2017-05-03] MEDS ORDERED: PROPOFOL 200 MG/20 ML VIAL IV ONE (10:06)
[2017-05-03] MEDS ORDERED: MIDAZOLAM 2 MG/2 ML VIAL ONE (10:06)
[2017-05-03] MEDS ORDERED: KETOROLAC 30 MG/1 ML VIAL ONE (10:07)
[2017-05-03] MEDS ORDERED: ONDANSETRON 4 MG/2 ML VIAL ONE ×2 (10:07→10:09)
[2017-05-03] MEDS ORDERED: LABETALOL 100 MG/20 ML VIAL IV ONE (10:07)
[2017-05-03] MEDS ORDERED: fentaNYL 100 MCG/2 ML VIAL ONE (10:07)
[2017-05-03] MEDS ORDERED: DEXAMETHASONE 10 MG/1 ML VIAL ONE (10:07)
[2017-05-03] MEDS ORDERED: HYDROmorphone 2 MG/1 ML VIAL ONE (10:09)
[2017-05-03] MEDS: HYDROmorphone 2 MG/1 ML VIAL IV PRN ×2 (10:09→10:19)
[2017-05-03] MEDS: PANTOPRAZOLE 40 MG VIAL IV SCH (10:47)
[2017-05-03] MEDS: VALSARTAN 160 MG TABLET PO SCH (10:47)
[2017-05-03] MEDS: CARVEDILOL 25 MG TABLET PO SCH ×2 (10:47→22:14)
[2017-05-03] MEDS: amLODIPine 10 MG TABLET PO SCH (10:47)
[2017-05-03] MEDS: ISOSORBIDE DINITRATE 20 MG TABLET PO SCH ×2 (10:47→22:14)
[2017-05-03] MEDS: INSULIN GLARGINE 100 UNIT/ML SUBCUT SCH (10:47)
[2017-05-03] MEDS: DOCUSATE SODIUM 100 MG CAPSULE PO SCH ×2 (10:47→22:14)
[2017-05-03] MEDS: CEFTAROLINE 600 MG in SODIUM CHLORIDE 0.9% 50 ML IV SCH (14:22)
[2017-05-03] MEDS: MORPHINE 2 MG/1 ML SYRINGE IV PRN ×2 (18:32→22:12)
[2017-05-04] MEDS: CEFTAROLINE 600 MG in SODIUM CHLORIDE 0.9% 50 ML IV SCH ×2 (01:31→14:15)
[2017-05-04] MEDS: INSULIN REGULAR 100 UNIT/ML SUBCUT SCH ×5 (02:27→17:06)
[2017-05-04] MEDS: MORPHINE 2 MG/1 ML SYRINGE IV PRN ×3 (02:28→12:55)
[2017-05-04] MEDS: SODIUM CHLORIDE 0.9% 1,000 ML IV SCH ×2 (05:10→09:17)
[2017-05-04] MEDS: ENOXAPARIN 40 MG/0.4 ML SYRINGE SUBCUT SCH (07:28)
[2017-05-04] MEDS: CARVEDILOL 25 MG TABLET PO SCH (09:12)
[2017-05-04] MEDS: amLODIPine 10 MG TABLET PO SCH (09:12)
[2017-05-04] MEDS: ISOSORBIDE DINITRATE 20 MG TABLET PO SCH (09:12)
[2017-05-04] MEDS: DOCUSATE SODIUM 100 MG CAPSULE PO SCH (09:12)
[2017-05-04] MEDS: VALSARTAN 160 MG TABLET PO SCH (09:12)
[2017-05-04] MEDS: PANTOPRAZOLE 40 MG VIAL IV SCH (09:13)
[2017-05-04] MEDS: INSULIN GLARGINE 100 UNIT/ML SUBCUT SCH (09:17)
[2017-05-04 12:20] VITALS: BP 142/82
== END 2017-05-04 17:46 | disposition home or self-care (01) | DRG 580 ==
LOC: N.ED 21:31 → N.EDINP 05-03 04:36 → N.5E 05-03 05:44
PROVIDERS: ADMIT Internal Medicine; ATTEND Internal Medicine

== ENCOUNTER 2019-08-05 10:20 | Observation (INO) ==
[2019-08-05] MEDS ORDERED: ONDANSETRON 4 MG/2 ML VIAL IV STA (11:23)
[2019-08-05] MEDS ORDERED: MECLIZINE 25 MG TABLET PO STA (11:23)
[2019-08-05 11:52] LABS: Basophils % 0.3 % (0.0-0.8); Eosinophils # 0.1 10*3/uL (0.0-0.87); Eosinophils % 0.9 % (0.00-10.9); Hematocrit 37.6 VOL% (42.0-52.0); Hemoglobin 12.3 GM/DL (14.0-18.0); Immature Granulocytes % 0.5 %; Immature Granulocytes Absolute 0.04 #; Lymphocytes # 1.6 10*3/uL (1.4-4.0); Lymphocytes % 18.4 % (21.2-54.2); Mean Corpuscular HGB Conc 32.7 GM/DL (32-36); Mean Corpuscular Volume 93.3 FL (87-102); Mean Platelet Volume 12.4 FL (9.6-12.0); Monocytes % 6.5 % (1.7-12.7); Neutrophils % 73.4 % (38.7-73.9); Platelet Count 177 T/CUMM (130-400); Red Blood Count 4.03 MC/CUMM (3.8-5.5); Red Cell Distribution Width 12.6 % (9.3-17.3); White Blood Count 8.8 T/CUMM (4-12)
[2019-08-05 12:31] LABS: Alanine Aminotransferase 36 U/L (16-61); Albumin 2.5 G/DL (3.4-5.0); Alkaline Phosphatase 161 U/L (45-117); Aspartate Amino Transferase 25 U/L (0-37); Bilirubin,Total < 0.39 MG/DL (0.2-1.0); Blood Urea Nitrogen 63 MG/DL (7-18); Calcium 8.7 MG/DL (8.5-10.1); Estimated Glom Filtration Rate 31 ML/MIN; Glucose 482 MG/DL (74-106); Osmolality,Calculated 298.8 MOS/KG (273-304); Total Protein 7.8 G/DL (6.4-8.3)
[2019-08-05 13:23] LABS: Apearance,Urine CLEAR (Clear); Bilirubin,Urine Negative (Negative); Blood, Urine Negative (Negative); Glucose,Urine (UA) >=500 mg/dL (Negative); Ketones,Urine Negative (Negative); Nitrite,Urine Negative (Negative); Protein,Urine 100 MG/DL; RBC,Urine 1 /HPF (0-4); Squamous Epithelial Cell,Urine Occasional /HPF (0-10); Urine Color Straw (Yellow); Urine Specific Gravity 1.013 (1.001-1.035); Urine Urobilinogen < 2.0 EU/DL (0.2-1.0)
[2019-08-05 13:28] LABS: Barbiturates Screen,Urine Negative (Negative); Benzodiazepines Screen,Urine Negative (Negative); Cannabinoid Screen,Urine Negative (Negative); Opiate Screen,Urine Negative (Negative); Phencyclidine Screen,Urine Negative (Negative)
[2019-08-05] MEDS ORDERED: SODIUM CHLORIDE 0.9% 1,000 ML IV STA (13:35)
[2019-08-05] MEDS ORDERED: INSULIN REGULAR 100 UNIT/ML IV STA (13:35)
[2019-08-05] MEDS ORDERED: hydrALAZINE 20 MG/1 ML VIAL IV STA (13:35)
[2019-08-05] MEDS ORDERED: DEXTROSE 10% 250 ML BAG IV PRN (14:46)
[2019-08-05] MEDS ORDERED: ZALEPLON 5 MG CAPSULE PO PRN (14:46)
[2019-08-05] MEDS ORDERED: ACETAMINOPHEN 325 MG TABLET PO PRN (14:46)
[2019-08-05] MEDS ORDERED: BISACODYL 5 MG TABLET PO PRN (14:46)
[2019-08-05] MEDS ORDERED: GLUCAGON 1 MG VIAL IM PRN (14:46)
[2019-08-05] MEDS ORDERED: hydrALAZINE 20 MG/1 ML VIAL IV PRN (14:46)
[2019-08-05 15:16] LABS: Risk Ratio 2.88; Thyroid Stimulating Hormone 1.36 uIU/ml (0.358-3.74); VLDL CHOLESTEROL 19.4 MG/DL
[2019-08-05] MEDS: INSULIN REGULAR 100 UNIT/ML SUBCUT SCH ×2 (18:26→21:46)
[2019-08-05] MEDS: SODIUM CHLORIDE 0.9% 1,000 ML IV SCH (18:26)
[2019-08-05] MEDS: SERTRALINE 25 MG TABLET PO SCH (21:44)
[2019-08-05] MEDS: carvediloL 25 MG TABLET PO SCH (21:44)
[2019-08-05] MEDS: ENOXAPARIN 30 MG/0.3 ML SYRINGE SUBCUT SCH (21:46)
[2019-08-05] MEDS: INSULIN GLARGINE 100 UNIT/ML SUBCUT SCH (21:54)
[2019-08-06] MEDS: SODIUM CHLORIDE 0.9% 1,000 ML IV SCH ×3 (02:00→16:25)
[2019-08-06 04:13] LABS: Calcium 8.3 MG/DL (8.5-10.1); Osmolality,Calculated 291.1 MOS/KG (273-304)
[2019-08-06 04:46] LABS: Basophils % 0.4 % (0.0-0.8); Eosinophils # 0.1 10*3/uL (0.0-0.87); Eosinophils % 1.4 % (0.00-10.9); Hematocrit 32.9 VOL% (42.0-52.0); Hemoglobin 11.2 GM/DL (14.0-18.0); Immature Granulocytes % 0.6 %; Immature Granulocytes Absolute 0.06 #; Lymphocytes # 2.4 10*3/uL (1.4-4.0); Lymphocytes % 25.5 % (21.2-54.2); Mean Corpuscular Volume 91.4 FL (87-102); Mean Platelet Volume 12.4 FL (9.6-12.0); Monocytes % 8.9 % (1.7-12.7); Neutrophils % 63.2 % (38.7-73.9); Platelet Count 182 T/CUMM (130-400); Red Cell Distribution Width 12.8 % (9.3-17.3); White Blood Count 9.4 T/CUMM (4-12)
[2019-08-06] MEDS: CHOLECALCIFEROL 1,000 UNIT TABLET PO SCH (09:23)
[2019-08-06] MEDS: carvediloL 25 MG TABLET PO SCH ×2 (09:23→21:18)
[2019-08-06] MEDS: ASPIRIN EC 325 MG TABLET PO SCH (09:23)
[2019-08-06] MEDS: INSULIN GLARGINE 100 UNIT/ML SUBCUT SCH ×2 (09:24→21:18)
[2019-08-06] MEDS: INSULIN REGULAR 100 UNIT/ML SUBCUT SCH ×4 (09:25→21:19)
[2019-08-06] MEDS: SERTRALINE 25 MG TABLET PO SCH (21:18)
[2019-08-06] MEDS: ENOXAPARIN 30 MG/0.3 ML SYRINGE SUBCUT SCH (21:18)
[2019-08-07] MEDS: SODIUM CHLORIDE 0.9% 1,000 ML IV SCH ×2 (02:11→11:49)
[2019-08-07 05:02] LABS: Basophils % 0.5 % (0.0-0.8); Eosinophils # 0.1 10*3/uL (0.0-0.87); Eosinophils % 1.8 % (0.00-10.9); Hematocrit 33.4 VOL% (42.0-52.0); Hemoglobin 10.8 GM/DL (14.0-18.0); Immature Granulocytes % 0.4 %; Immature Granulocytes Absolute 0.03 #; Lymphocytes # 2.3 10*3/uL (1.4-4.0); Lymphocytes % 28.7 % (21.2-54.2); Mean Corpuscular HGB Conc 32.3 GM/DL (32-36); Mean Corpuscular Volume 95.4 FL (87-102); Mean Platelet Volume 12.6 FL (9.6-12.0); Monocytes % 7.3 % (1.7-12.7); Neutrophils % 61.3 % (38.7-73.9); Platelet Count 160 T/CUMM (130-400); Red Cell Distribution Width 13.1 % (9.3-17.3); White Blood Count 7.9 T/CUMM (4-12)
[2019-08-07 05:36] LABS: Calcium 8.3 MG/DL (8.5-10.1)
[2019-08-07] MEDS: carvediloL 25 MG TABLET PO SCH (09:04)
[2019-08-07] MEDS: CHOLECALCIFEROL 1,000 UNIT TABLET PO SCH (09:04)
[2019-08-07] MEDS: ASPIRIN EC 325 MG TABLET PO SCH (09:04)
[2019-08-07] MEDS: INSULIN GLARGINE 100 UNIT/ML SUBCUT SCH (09:05)
[2019-08-07] MEDS: INSULIN REGULAR 100 UNIT/ML SUBCUT SCH ×2 (11:48→12:30)
[2019-08-07 11:55] VITALS: BP 174/94
== END 2019-08-07 15:15 | disposition home or self-care (01) ==
LOC: N.EDINP 10:20 → N.ED 10:20 → N.2W 15:16
PROVIDERS: ADMIT Internal Medicine; ATTEND Internal Medicine

== ENCOUNTER 2022-07-18 01:18 | Inpatient (IN) ==
[2022-07-18] MEDS ORDERED: ALUM/MAG/SIMETH/LIDO VISC 1:1 30 ML BOTTLE PO STA (01:41)
[2022-07-18 01:58] LABS: Basophils % 0.3 % (0.0-0.8); Eosinophils % 0.2 % (0.00-10.9); Hematocrit 38.8 VOL% (42.0-52.0); Hemoglobin 12.3 GM/DL (14.0-18.0); Immature Granulocytes % 0.7 %; Immature Granulocytes Absolute 0.09 #; Lymphocytes % 7.7 % (21.2-54.2); Mean Corpuscular HGB Conc 31.7 GM/DL (32-36); Mean Corpuscular Volume 102.1 FL (87-102); Mean Platelet Volume 11.4 FL (9.6-12.0); Monocytes # 0.9 10*3/uL (0.11-0.8); Neutrophils % 84.1 % (38.7-73.9); Platelet Count 168 T/CUMM (130-400); Red Cell Distribution Width 14.4 % (9.3-17.3); White Blood Count 12.46 T/CUMM (4-12)
[2022-07-18] MEDS ORDERED: SODIUM CHLORIDE 0.9% 500 ML IV STA ×2 (02:08→02:39)
[2022-07-18 02:14] LABS: Albumin 3.3 G/DL (3.4-5.0); Bilirubin,Total 0.6 MG/DL (0.20-1.00); Calcium 9.1 MG/DL (8.5-10.1); Osmolality,Calculated 302.4 MOS/KG (273-304)
[2022-07-18 02:30] LABS: Potassium 6.1 MMOL/L (3.5-5.1)
[2022-07-18] MEDS ORDERED: PIPERACILLIN/TAZOBACTAM 3,375 MG in SODIUM CHLORIDE 0.9% 100 ML IV STA (02:39)
[2022-07-18] MEDS ORDERED: DEXTROSE 50% 25 GM/50 ML VIAL IV STA (02:39)
[2022-07-18] MEDS ORDERED: INSULIN REGULAR 100 UNIT/ML IV STA (02:40)
[2022-07-18] MEDS ORDERED: DEXTROSE 50% 25 GM/50 ML SYRINGE IV STA (02:41)
[2022-07-18] MEDS ORDERED: ALUMINUM/MAGNES/SIMETH MAX STR 30 ML UDCUP PO PRN (03:30)
[2022-07-18] MEDS ORDERED: ONDANSETRON 4 MG/2 ML VIAL IV PRN (03:30)
[2022-07-18] MEDS ORDERED: ACETAMINOPHEN 325 MG TABLET PO PRN (03:30)
[2022-07-18] MEDS ORDERED: hydrALAZINE 20 MG/1 ML VIAL IV PRN (03:30)
[2022-07-18] MEDS ORDERED: DEXTROSE 10% 250 ML BAG IV PRN (03:45)
[2022-07-18] MEDS ORDERED: GLUCAGON 1 MG VIAL IM PRN (03:45)
[2022-07-18] MEDS ORDERED: LEVOFLOXACIN INJ 750 MG/150 ML PREMIX IV STA (04:35)
[2022-07-18] MEDS ORDERED: MELATONIN 3 MG TABLET PO PRN (05:21)
[2022-07-18] MEDS: ALBUTEROL/IPRATROPIUM 3 ML NEB RESP TX SCH ×3 (07:00→19:47)
[2022-07-18] MEDS: INSULIN REGULAR 100 UNIT/ML SUBCUT SCH ×4 (08:04→21:48)
[2022-07-18] MEDS ORDERED: HEPARIN 5,000 UNIT/1 ML VIAL SUBCUT SCH (09:00)
[2022-07-18] MEDS ORDERED: guaiFENesin/DM ER 600-30 MG TABLET PO SCH (09:00)
[2022-07-18] MEDS ORDERED: METAXALONE 800 MG TABLET PO SCH (09:00)
[2022-07-18] MEDS: hydrALAZINE 25 MG TABLET PO SCH ×2 (09:14→23:50)
[2022-07-18] MEDS: GABAPENTIN 300 MG CAPSULE PO SCH ×2 (09:26→21:43)
[2022-07-18] MEDS: DOCUSATE SODIUM 100 MG CAPSULE PO SCH ×4 (09:26→21:51)
[2022-07-18] MEDS: PANTOPRAZOLE 40 MG TABLET PO SCH (09:27)
[2022-07-18] MEDS: MULTIVITAMIN (BEROCCA) TABLET PO SCH (09:27)
[2022-07-18] MEDS: POLYETHYLENE GLYCOL POWDER 17 GM PACK PO SCH ×2 (09:27→09:33)
[2022-07-18] MEDS: SERTRALINE 50 MG TABLET PO SCH (09:27)
[2022-07-18] MEDS ORDERED: HEPARIN DRIP 25,000 UNITS/500 ML PREMIX IV SCH (09:30)
[2022-07-18] MEDS: LANTHANUM 1000 MG PO SCH ×2 (09:33→17:33)
[2022-07-18] MEDS: traMADol 50 MG TABLET PO SCH ×3 (09:33→21:43)
[2022-07-18] MEDS ORDERED: HEPARIN 10,000 UNIT/10 ML VIAL IV PRN (16:49)
[2022-07-18 17:13] LABS: Hepatitis B Core IgM Quant 0.08 Index; Hepatitis B Surface Ag Quant < 0.10 Index; Hepatitis B Surface Ag Result Non-Reactive (NonReactive); Hepatitis C Virus Ab Quant 0.03 Index; Hepatitis C Virus Ab Result Non-Reactive (NonReactive)
[2022-07-18] MEDS ORDERED: MIRTAZAPINE 15 MG TABLET PO SCH (21:00)
[2022-07-18] MEDS ORDERED: busPIRone 5 MG TABLET PO SCH (21:00)
[2022-07-18] MEDS: PIPERACILLIN/TAZOBACTAM 3,375 MG in SODIUM CHLORIDE 0.9% 100 ML IV SCH (21:44)
[2022-07-18] MEDS: HEPARIN 5,000 UNIT/1 ML VIAL SUBCUT SCH (21:48)
[2022-07-19] MEDS: ALBUTEROL/IPRATROPIUM 3 ML NEB RESP TX SCH ×2 (01:43→07:45)
[2022-07-19 05:51] LABS: Basophils % 0.4 % (0.0-0.8); Eosinophils # 0.2 10*3/uL (0.0-0.87); Eosinophils % 2.8 % (0.00-10.9); Hematocrit 32.6 VOL% (42.0-52.0); Hemoglobin 10.2 GM/DL (14.0-18.0); Immature Granulocytes % 0.5 %; Immature Granulocytes Absolute 0.04 #; Lymphocytes # 1.4 10*3/uL (1.4-4.0); Lymphocytes % 19.3 % (21.2-54.2); Mean Corpuscular HGB Conc 31.3 GM/DL (32-36); Mean Corpuscular Volume 101.6 FL (87-102); Mean Platelet Volume 10.6 FL (9.6-12.0); Monocytes # 0.9 10*3/uL (0.11-0.8); Monocytes % 11.9 % (1.7-12.7); Neutrophils % 65.1 % (38.7-73.9); Platelet Count 123 T/CUMM (130-400); Red Blood Count 3.21 MC/CUMM (3.8-5.5); Red Cell Distribution Width 14.2 % (9.3-17.3); White Blood Count 7.42 T/CUMM (4-12)
[2022-07-19 06:23] LABS: Albumin 2.7 G/DL (3.4-5.0); Bilirubin,Total 0.4 MG/DL (0.20-1.00); Calcium 8.5 MG/DL (8.5-10.1); Osmolality,Calculated 291.3 MOS/KG (273-304); Potassium 4.2 MMOL/L (3.5-5.1)
[2022-07-19 06:45] LABS: Calcium 8.5 MG/DL (8.5-10.1); Osmolality,Calculated 288.4 MOS/KG (273-304); Potassium 4.1 MMOL/L (3.5-5.1)
[2022-07-19] MEDS: traMADol 50 MG TABLET PO SCH (11:19)
[2022-07-19] MEDS: PIPERACILLIN/TAZOBACTAM 3,375 MG in SODIUM CHLORIDE 0.9% 100 ML IV SCH (11:19)
[2022-07-19] MEDS: INSULIN REGULAR 100 UNIT/ML SUBCUT SCH ×2 (11:19→12:44)
[2022-07-19] MEDS: PANTOPRAZOLE 40 MG TABLET PO SCH (11:19)
[2022-07-19] MEDS: DOCUSATE SODIUM 100 MG CAPSULE PO SCH (11:20)
[2022-07-19] MEDS: SERTRALINE 50 MG TABLET PO SCH (11:20)
[2022-07-19] MEDS: GABAPENTIN 300 MG CAPSULE PO SCH (11:20)
[2022-07-19] MEDS: LANTHANUM 1000 MG PO SCH (11:20)
[2022-07-19] MEDS: MULTIVITAMIN (BEROCCA) TABLET PO SCH (11:20)
[2022-07-19] MEDS: hydrALAZINE 25 MG TABLET PO SCH (11:20)
[2022-07-19] MEDS: POLYETHYLENE GLYCOL POWDER 17 GM PACK PO SCH (11:21)
[2022-07-19] MEDS: HEPARIN 5,000 UNIT/1 ML VIAL SUBCUT SCH (11:21)
[2022-07-19 12:07] VITALS: BP 126/76
[2022-07-20] MEDS ORDERED: LEVOFLOXACIN INJ 500 MG/100 ML PREMIX IV SCH (04:00)
== END 2022-07-19 14:45 | DRG 193 ==
LOC: N.ED 01:18 → N.2E 03:30
PROVIDERS: ADMIT Emergency Medicine; ATTEND Emergency Medicine